=== PATIENT | male | born 2000 | race Caucasian/White ===

== ENCOUNTER 2021-03-23 08:59 | Emergency (ER) | payer BC ==
[~2021-03-23] VITALS: Ht 190.5 cm; Wt 86.4 kg
[~2021-03-23 08:59] MED LIST: ZITHROMAX Z PA250 MG PO
[2021-03-23 09:05] VITALS: TEMP 98.4
[2021-03-23] MEDS ORDERED: ONE-A-DAY ESSE1 EACH PO (09:09)
[2021-03-23 10:01] LABS: TRICYCLIC ANTIDEPRESS URINE NEGATIVE
[2021-03-23 10:07] LABS: BASO % 0.4 % (0.0-2.0); EOS % 0.4 % (0-4.0); GRAN # 6.8 (1.4-6.5); GRAN % 69.6 % (42.2-75.2); HEMATOCRIT 44.4 % (42.0-52.0); HEMOGLOBIN 15.1 g/dl (13.5-18.0); LYMPH # 2.1 (1.2-3.4); LYMPH % 21.2 % (20.0-51.0); MEAN CELL VOLUME 82 fl (80.0-100.0); MEAN CORPUSCULAR HEMOGLOBIN 28 pg (27.0-31.0); MEAN CORPUSCULAR HGB CONC 34 g/dl (33.0-37.0); MEAN PLATELET VOLUME 10.1 fl (7.4-10.4); MONO # 0.8 (0.1-0.6); PLATELET COUNT 226 K/mm3 (130-400); RED BLOOD COUNT 5.41 M/mm3 (4.20-5.60); REDCELL DISTRIBUTION WIDTH-CV 12.8 % (11.5-14.5)
[2021-03-23 10:19] LABS: BILIRUBIN,TOTAL 1.3 mg/dL (0.0-1.0); CALCIUM 9.8 mg/dL (8.4-10.2); CREATININE, serum 0.8 (0.66-1.25); POTASSIUM 3.7 mmol/L (3.4-5.0); TOTAL PROTEIN 8.5 gm/dL (6.4-8.2)
[2021-03-23] MEDS ORDERED: ATIVAN 1MG T1 MG/TAB PO (11:30)
[2021-03-23 12:30] VITALS: BP 124/81; PULSE 97
== END 2021-03-23 13:05 | disposition home or self-care (01) ==
LOC: COL.ER 08:59
PROVIDERS: Personal Emergency Response Attendant
DX: R20.2 Paresthesia of skin (principal); F41.9 Anxiety disorder, unspecified; M62.838 Other muscle spasm

== ENCOUNTER 2021-03-30 17:41 | Emergency (ER) | payer BC ==
[~2021-03-30 17:41] MED LIST changes: +ATIVAN 1MG T1 MG/TAB PO; +ONE-A-DAY ESSE1 EACH PO
== END 2021-03-30 17:53 | disposition left against medical advice (07) ==
LOC: COL.ER 17:41
DX: R53.81 Other malaise (principal)

== ENCOUNTER 2021-05-11 17:32 | Emergency (ER) | payer BC ==
[~2021-05-11] VITALS: Ht 190.5 cm; Wt 77.3 kg
[2021-05-11 18:34] VITALS: TEMP 98.6
[2021-05-11 20:08] LABS: BASO # 0.1 (0.0-0.2); BASO % 0.6 % (0.0-2.0); EOS % 0.5 % (0-4.0); GRAN # 3.9 (1.4-6.5); GRAN % 49.9 % (42.2-75.2); HEMATOCRIT 46.1 % (42.0-52.0); HEMOGLOBIN 15.3 g/dl (13.5-18.0); LYMPH # 3.2 (1.2-3.4); LYMPH % 40.6 % (20.0-51.0); MEAN CELL VOLUME 85 fl (80.0-100.0); MEAN CORPUSCULAR HEMOGLOBIN 28 pg (27.0-31.0); MEAN CORPUSCULAR HGB CONC 33 g/dl (33.0-37.0); MEAN PLATELET VOLUME 10.1 fl (7.4-10.4); MONO # 0.7 (0.1-0.6); MONO % 8.3 % (1.7-9.3); PLATELET COUNT 215 K/mm3 (130-400); RED BLOOD COUNT 5.44 M/mm3 (4.20-5.60); REDCELL DISTRIBUTION WIDTH-CV 12.3 % (11.5-14.5)
[2021-05-11 20:12] LABS: PH 8 (5-8); SQUAMOUS EPITHELIAL 0-2 /hpf; URINE APPEARANCE Clear; URINE BACTERIA None Seen /hpf; URINE BILIRUBIN Negative (NEGATIVE); URINE BLOOD Negative (NEGATIVE); URINE COLOR Colorless; URINE GLUCOSE Negative (NEGATIVE); URINE KETONE Negative (NEGATIVE); URINE LEUKOCYTE ESTERASE Negative (NEGATIVE); URINE NITRATE Negative (NEGATIVE); URINE PROTEIN(semi-quant) Negative (NEGATIVE); URINE RBC 0-2 /hpf; URINE UROBILINOGEN Negative (NEGATIVE); URINE WBC 0-2 /hpf
[2021-05-11 20:22] LABS: ALANINE AMINOTRANSFERASE 20 U/L (4-49); ALBUMIN 4.9 gm/dL (3.5-5.0); ALKALINE PHOSPHATASE 70 U/L (50-136); ANION GAP 14 mmol/L (7-16); AST,SGOT 27 U/L (15-37); BILIRUBIN,TOTAL 1.1 mg/dL (0.0-1.0); BLOOD UREA NITROGEN 13 mg/dL (9-20); CALCIUM 10.1 mg/dL (8.4-10.2); CARBON DIOXIDE 24 mmol/L (22-30); CHLORIDE 102 mmol/L (98-107); CREATININE, serum 0.83 (0.66-1.25); GLUCOSE 95 mg/dL (74-106); POTASSIUM 3.6 mmol/L (3.4-5.0); SODIUM 140 mmol/L (137-145); TOTAL PROTEIN 8.7 gm/dL (6.4-8.2)
[2021-05-11 20:30] LABS: COLLECTION METHOD CLEAN CATCH
[2021-05-11 20:40] LABS: TROPONIN-I < 0.012 ng/mL (0.000-0.035)
[2021-05-11 22:00] VITALS: BP 129/79; PULSE 88
== END 2021-05-11 22:00 | disposition home or self-care (01) ==
LOC: COL.ER 17:32
PROVIDERS: Emergency Medicine
DX: R07.2 Precordial pain (principal); R00.2 Palpitations; Z87.74 Personal history of (corrected) congenital malformations of heart and circulatory system

== ENCOUNTER → 2021-05-30 | Outpatient (CLI) | payer BC | LOC: COL.RAD 07:03 | DX: Q67.6 Pectus excavatum (principal) | CPT/HCPCS: Q9967 ==

== ENCOUNTER 2023-10-24 13:31 | Emergency (ER) | payer BC ==
[~2023-10-24] VITALS: Ht 190.5 cm; Wt 90.9 kg
[2023-10-24 13:56] VITALS: BP 150/80
[2023-10-24] MEDS ORDERED: ANUSOL-HC SUPPO25 MG RC (14:19)
[2023-10-24] MEDS ORDERED: DULCOLAX STOOL100 MG PO (14:19)
[2023-10-24 14:49] VITALS: PULSE 96; TEMP 98.2
== END 2023-10-24 14:47 | disposition home or self-care (01) ==
LOC: COL.ER 13:31
DX: K64.4 Residual hemorrhoidal skin tags (principal)